=== PATIENT | female | born 1940 | race Caucasian/White ===

== ENCOUNTER → 2019-08-12 | Outpatient (CLI) | payer MEDICARE, OTHER ==
[~2019-08-12] MED LIST: ASPI-630 PO; BACL10TA PO; BENA20TA4 PO; CALC-483 PO; CRESTOR20 MG PO; FEXO180T81 PO; GABA-585 PO; LEVO50TA5 PO; METO50TA6 PO; VIT1TABL32 PO
--- NOTE | 2019-08-12 09:25 | KCIC ---
EXAM: Dual energy x-ray absorptiometry (DEXA). HISTORY: Postmenopausal female presents for osteoporosis screening. COMPARISON: None. TECHNIQUE: Dual energy x-ray absorptiometry of the lumbar spine and left hip was performed. Calculation of bone mineral density based on standard deviations above or below the expected young adult normal value (T-score) was completed. FINDINGS: The average bone mineral density in the 1st through 4th lumbar vertebrae is 0.889 g/cmxcm, corresponding with a T-score of -1.4. The average total bone mineral density in the left hip is 0.746 g/cmxcm, corresponding with a T-score of -1.6. IMPRESSION: Osteopenia. Note: Definitions established by the [employer] Organization: 1. Normal: T-score is -1.0 or above. 2. Osteopenia: T-score is between -1.0 and -2.5 . 3. Osteoporosis: T-score is -2.5 or below. Electronically signed by: Carla Colin MD (08/12/2019 9:22 AM) [place] [id number]
== END | disposition home or self-care (01) ==
LOC: KCIC DEXA 09:00
PROVIDERS: ATTEND Nurse Practitioner Family
DX: Z13.820 Encounter for screening for osteoporosis (principal); M85.88 Other specified disorders of bone density and structure, other site; N95.9 Unspecified menopausal and perimenopausal disorder
CPT/HCPCS: 77080